=== PATIENT | female | born 1970 | race Caucasian/White ===

== ENCOUNTER 2017-05-29 13:52 | Emergency (ER) | payer OTHER, MEDICAID ==
[~2017-05-29 13:52] MED LIST: ALBUTEROL0.09 MG/A2 IH; DIOVAN320 MG PO; MOTRIN800 MG PO; MULTI-VITAMINS1 TAB; NOR10T PO
[2017-05-29 14:54] VITALS: BP 132/91
== END 2017-05-29 14:54 | disposition home or self-care (01) ==
LOC: ED 13:52
DX: K29.70 Gastritis, unspecified, without bleeding (principal); J45.909 Unspecified asthma, uncomplicated; I10 Essential (primary) hypertension; F11.20 Opioid dependence, uncomplicated; G89.29 Other chronic pain; Z88.5 Allergy status to narcotic agent; Z90.711 Acquired absence of uterus with remaining cervical stump

== ENCOUNTER 2017-07-09 21:20 | Emergency (ER) | payer OTHER, MEDICAID ==
[2017-07-09 23:51] VITALS: BP 140/109
== END 2017-07-09 23:51 | disposition home or self-care (01) ==
LOC: ED 21:20
DX: N64.4 Mastodynia (principal); R09.81 Nasal congestion; J45.909 Unspecified asthma, uncomplicated; I10 Essential (primary) hypertension; Z90.710 Acquired absence of both cervix and uterus; Z88.5 Allergy status to narcotic agent
CPT/HCPCS: J1885

== ENCOUNTER 2017-07-11 16:25 | Emergency (ER) | payer OTHER, MEDICAID ==
[2017-07-11 19:47] VITALS: BP 142/97
== END 2017-07-11 19:47 | disposition home or self-care (01) ==
LOC: ED 16:25
DX: J06.9 Acute upper respiratory infection, unspecified (principal); M79.644 Pain in right finger(s); J45.909 Unspecified asthma, uncomplicated; I10 Essential (primary) hypertension; M79.1 Myalgia; M19.90 Unspecified osteoarthritis, unspecified site; Z88.5 Allergy status to narcotic agent
CPT/HCPCS: J7613

== ENCOUNTER 2017-08-02 20:31 | Emergency (ER) | payer OTHER, MEDICAID ==
[2017-08-02 20:37] VITALS: BP 172/107
[2017-08-02 21:51] LABS: PLATELET COUNT 274 x10^3mcL (130-400); RED CELL DISTRIBUTION WIDTH 13.3 % (11.5-14.5)
[2017-08-02 22:00] LABS: CALCIUM 8.5 mg/dL (8.5-10.1); CARBON DIOXIDE 29.5 mmol/L (21-32); CREATININE SERUM 1.1 mg/dL (0.6-1.0); POTASSIUM SERUM 3.5 mmol/L (3.5-5.1)
[2017-08-02 22:05] LABS: ALBUMIN 3.3 g/dL (3.4-5.0); BILIRUBIN TOTAL 0.43 mg/dL (0.20-1.00); TOTAL PROTEIN, SERUM 7.4 g/dL (6.4-8.2)
== END 2017-08-02 23:40 | disposition left against medical advice (07) ==
LOC: ED 20:31
PROVIDERS: Emergency Medicine
DX: R07.9 Chest pain, unspecified (principal); R51 Headache; M54.2 Cervicalgia; I10 Essential (primary) hypertension; Z88.5 Allergy status to narcotic agent; J45.909 Unspecified asthma, uncomplicated; F31.9 Bipolar disorder, unspecified; Z90.710 Acquired absence of both cervix and uterus
CPT/HCPCS: 83880; J3010

== ENCOUNTER 2017-09-17 11:17 | Emergency (ER) | payer OTHER ==
[2017-09-17 13:05] LABS: BASOPHIL % 0.5 % (0-2); PLATELET COUNT 272 x10^3mcL (130-400); RED CELL DISTRIBUTION WIDTH 13.4 % (11.5-14.5)
[2017-09-17 13:14] LABS: CALCIUM 8.6 mg/dL (8.5-10.1); CARBON DIOXIDE 30.4 mmol/L (21-32); CHLORIDE SERUM 105 mmol/L (98-107); CREATININE SERUM 0.9 mg/dL (0.6-1.0); GFR1 > 60 mL/min; GLUCOSE SERUM 120 mg/dL (74-106); POTASSIUM SERUM 3.1 mmol/L (3.5-5.1); SODIUM SERUM 143 mmol/L (136-145)
[2017-09-17 13:18] LABS: ALBUMIN 3.2 g/dL (3.4-5.0); ALKALINE PHOSPHATASE 98 U/L (46-116); ALT/SGPT 56 U/L (14-59); AST/SGOT 33 U/L (15-37); BILIRUBIN TOTAL 0.4 mg/dL (0.20-1.00)
[2017-09-17 14:13] VITALS: BP 138/80
== END 2017-09-17 14:14 | disposition home or self-care (01) ==
LOC: ED 11:17
PROVIDERS: Specialist
DX: L29.9 Pruritus, unspecified (principal); J45.909 Unspecified asthma, uncomplicated; I10 Essential (primary) hypertension; M46.90 Unspecified inflammatory spondylopathy, site unspecified; Z88.5 Allergy status to narcotic agent
CPT/HCPCS: 36415; J1200; J2930; Q0092

== ENCOUNTER 2017-10-22 09:01 | Emergency (ER) | payer OTHER ==
[~2017-10-22] VITALS: Ht 165.1 cm; Wt 88.0 kg
[2017-10-22 09:27] VITALS: Ht 165.1 cm; Wt 88.0 kg
[2017-10-22 11:06] LABS: UA SPECIFIC GRAVITY 1.025 (1.005-1.035); microscopic required? YES; urine erythrocyte NEGATIVE (NEGATIVE)
[2017-10-22 11:58] VITALS: BP 138/86
== END 2017-10-22 12:06 | disposition home or self-care (01) ==
LOC: ED 09:01
PROVIDERS: Emergency Medicine
DX: G89.29 Other chronic pain (principal); M54.9 Dorsalgia, unspecified; M19.90 Unspecified osteoarthritis, unspecified site; R03.0 Elevated blood-pressure reading, without diagnosis of hypertension; J45.909 Unspecified asthma, uncomplicated; F31.9 Bipolar disorder, unspecified; Z88.5 Allergy status to narcotic agent; Z90.49 Acquired absence of other specified parts of digestive tract; Z90.710 Acquired absence of both cervix and uterus
CPT/HCPCS: J1100; J1885

== ENCOUNTER 2017-11-04 19:02 | Emergency (ER) | payer OTHER ==
[~2017-11-04] VITALS: Ht 165.1 cm; Wt 87.7 kg
[2017-11-04 19:16] VITALS: Ht 165.1 cm; Wt 87.7 kg
[2017-11-04 20:45] VITALS: BP 130/87
== END 2017-11-04 20:45 | disposition home or self-care (01) ==
LOC: ED 19:02
DX: G89.29 Other chronic pain (principal); M54.5 Low back pain; I10 Essential (primary) hypertension; E11.9 Type 2 diabetes mellitus without complications; J45.909 Unspecified asthma, uncomplicated; M46.90 Unspecified inflammatory spondylopathy, site unspecified; F31.9 Bipolar disorder, unspecified; Z88.5 Allergy status to narcotic agent
CPT/HCPCS: J1170; J1885; Q0162

== ENCOUNTER 2017-11-10 12:37 | Emergency (ER) | payer OTHER ==
[~2017-11-10] VITALS: Ht 165.1 cm; Wt 88.5 kg
[2017-11-10 12:53] VITALS: Ht 165.1 cm; Wt 88.5 kg
[2017-11-10 13:22] VITALS: BP 137/81
== END 2017-11-10 15:01 | disposition home or self-care (01) ==
LOC: ED 12:37
DX: M54.40 Lumbago with sciatica, unspecified side (principal); M46.90 Unspecified inflammatory spondylopathy, site unspecified; J45.909 Unspecified asthma, uncomplicated; I10 Essential (primary) hypertension; E11.9 Type 2 diabetes mellitus without complications; I83.90 Asymptomatic varicose veins of unspecified lower extremity
CPT/HCPCS: J1885

== ENCOUNTER 2017-11-25 10:16 | Emergency (ER) | payer OTHER ==
[~2017-11-25] VITALS: Ht 170.2 cm; Wt 86.2 kg
[2017-11-25 10:49] VITALS: Ht 170.2 cm; Wt 86.2 kg
[2017-11-25 12:08] LABS: BASOPHIL % 1.8 % (0-2); PLATELET COUNT 293 x10^3mcL (130-400); RED CELL DISTRIBUTION WIDTH 13.8 % (11.5-14.5)
[2017-11-25 12:12] LABS: CALCIUM 8.7 mg/dL (8.5-10.1); CARBON DIOXIDE 25.9 mmol/L (21-32); CHLORIDE SERUM 106 mmol/L (98-107); CREATININE SERUM 0.7 mg/dL (0.6-1.0); GFR1 > 60 mL/min; GLUCOSE SERUM 140 mg/dL (74-106); POTASSIUM SERUM 3.7 mmol/L (3.5-5.1); SODIUM SERUM 143 mmol/L (136-145)
[2017-11-25 12:16] LABS: ALBUMIN 3.4 g/dL (3.4-5.0); ALKALINE PHOSPHATASE 106 U/L (46-116); ALT/SGPT 67 U/L (14-59); AST/SGOT 36 U/L (15-37); TOTAL PROTEIN, SERUM 7.1 g/dL (6.4-8.2)
[2017-11-25 12:24] LABS: AMPHETAMINE QUAL UR NONE DETECTED (NEG <=1000)
[2017-11-25 15:47] VITALS: BP 132/90
== END 2017-11-25 15:47 | disposition home or self-care (01) ==
LOC: ED 10:16
PROVIDERS: Emergency Medicine
DX: R51 Headache (principal); R42 Dizziness and giddiness; R20.2 Paresthesia of skin; I10 Essential (primary) hypertension; E11.9 Type 2 diabetes mellitus without complications; J45.909 Unspecified asthma, uncomplicated; G89.29 Other chronic pain; M54.9 Dorsalgia, unspecified; M46.90 Unspecified inflammatory spondylopathy, site unspecified; Z88.5 Allergy status to narcotic agent
CPT/HCPCS: 36415; J1885; J3010

== ENCOUNTER 2017-11-30 13:14 | Emergency (ER) | payer OTHER ==
[~2017-11-30] VITALS: Ht 165.1 cm; Wt 88.0 kg
[2017-11-30 13:36] VITALS: BP 144/92; Ht 165.1 cm; Wt 88.0 kg
[2017-11-30 14:28] LABS: BASOPHIL % 0.5 % (0-2); PLATELET COUNT 236 x10^3mcL (130-400); RED CELL DISTRIBUTION WIDTH 13.9 % (11.5-14.5)
[2017-11-30 14:29] LABS: CALCIUM 8.5 mg/dL (8.5-10.1); CARBON DIOXIDE 25.6 mmol/L (21-32); CHLORIDE SERUM 106 mmol/L (98-107); CREATININE SERUM 1.3 mg/dL (0.6-1.0); GFR1 46 mL/min; GLUCOSE SERUM 158 mg/dL (74-106); POTASSIUM SERUM 3.6 mmol/L (3.5-5.1); SODIUM SERUM 140 mmol/L (136-145)
[2017-11-30 14:34] LABS: ALBUMIN 3.3 g/dL (3.4-5.0); ALKALINE PHOSPHATASE 94 U/L (46-116); ALT/SGPT 67 U/L (14-59); AST/SGOT 40 U/L (15-37); BILIRUBIN TOTAL 0.5 mg/dL (0.20-1.00); MAGNESIUM 2.2 mg/dL (1.8-2.4); TOTAL PROTEIN, SERUM 6.7 g/dL (6.4-8.2)
[2017-11-30 14:42] LABS: AMPHETAMINE QUAL UR NONE DETECTED (NEG <=1000)
[2017-11-30 15:11] LABS: CK-MB 5.8 ng/mL (0-3.6)
== END 2017-11-30 15:42 | disposition home or self-care (01) ==
LOC: ED 13:14
PROVIDERS: Emergency Medicine
DX: R42 Dizziness and giddiness (principal); F39 Unspecified mood [affective] disorder; G89.29 Other chronic pain; I10 Essential (primary) hypertension; M19.90 Unspecified osteoarthritis, unspecified site; E11.9 Type 2 diabetes mellitus without complications; J45.909 Unspecified asthma, uncomplicated; F31.9 Bipolar disorder, unspecified; Z88.5 Allergy status to narcotic agent; Z94.9 Transplanted organ and tissue status, unspecified
CPT/HCPCS: 36415; G0480; J1885

== ENCOUNTER 2019-08-08 23:40 | Emergency (ER) | payer OTHER ==
[~2019-08-08] VITALS: Ht 162.6 cm; Wt 83.9 kg
[2019-08-08 23:47] VITALS: BP 142/88; Ht 162.6 cm; Wt 83.9 kg
== END 2019-08-09 01:17 | disposition home or self-care (01) ==
LOC: ED 23:40
DX: S61.252A Open bite of right middle finger without damage to nail, initial encounter (principal); L08.9 Local infection of the skin and subcutaneous tissue, unspecified; W55.01XA Bitten by cat, initial encounter; Y93.89 Activity, other specified; Y92.89 Other specified places as the place of occurrence of the external cause; Y99.8 Other external cause status
CPT/HCPCS: 90715; J1885